=== PATIENT | male | born 1985 | race Caucasian/White ===

== ENCOUNTER 2017-06-21 13:30 | Emergency (ER) | payer MEDICARE, OTHER ==
[~2017-06-21] VITALS: Ht 170.2 cm; Wt 95.2 kg
[2017-06-21] MEDS ORDERED: PARO20 PO ×2 (13:46→14:51)
[2017-06-21] MEDS ORDERED: Zofran Odt8 MG SL (14:51)
== END 2017-06-21 15:07 | disposition home or self-care (01) ==
LOC: ER 13:30
DX: Z76.0 Encounter for issue of repeat prescription (principal); F31.9 Bipolar disorder, unspecified; F41.9 Anxiety disorder, unspecified; Z88.5 Allergy status to narcotic agent; Z88.1 Allergy status to other antibiotic agents; Z79.899 Other long term (current) drug therapy
CPT/HCPCS: 99283